=== PATIENT | male | born 1980 | race Two or more races ===

== ENCOUNTER 2020-12-23 14:32 | Day surgery (SDC) | payer OTHER ==
[~2020-12-23] VITALS: Ht 177.8 cm; Wt 131.2 kg
[2020-12-23 15:25] VITALS: BP 138/84
[2020-12-23] MEDS ORDERED: PROMETHAZINE 25 MG/ML, 1ML IVPush PRN (15:30)
[2020-12-23] MEDS ORDERED: LABETALOL 5MG/ML, 20ML IV PRN (15:30)
[2020-12-23] MEDS ORDERED: hydrALAzine 20 MG/ML, 1ML IV PRN (15:30)
[2020-12-23] MEDS ORDERED: HYDROmorphone 1 MG/ML, 1ML INJ IVPush PRN (15:30)
[2020-12-23] MEDS ORDERED: OXYcodone 5 MG/5 ML ORAL.SOL UDC PO PRN (15:30)
[2020-12-23] MEDS ORDERED: LACTATED RINGERS 1,000 ML IV SCH (15:30)
[2020-12-23] MEDS ORDERED: FENTANYL PF 100 MCG/2ML IV PRN (15:30)
[2020-12-23] MEDS ORDERED: CHLORHEXIDINE 15 ML UDC PO ONE (15:30)
[2020-12-23] MEDS ORDERED: EPHEDRINE 50 MG/ML, 1ML IVPush PRN (15:30)
[2020-12-23] MEDS ORDERED: ONDANSETRON 2MG/ML, 2ML IVPush PRN (15:30)
[2020-12-23] MEDS ORDERED: LOSA25TA25 PO (15:34)
[2020-12-23] MEDS ORDERED: BUPIVACAINE 0.25% ONE (15:37)
[2020-12-23] MEDS ORDERED: BACITRACIN OINT 500U/GM, 15 GM ONE (15:38)
[2020-12-23] MEDS ORDERED: EPINEPHRINE 1 MG/ML, 1ML ONE (15:38)
[2020-12-23] MEDS ORDERED: BALANCED SALT OPHTH IRRIG SOLN 18ML ONE (15:38)
[2020-12-23] MEDS ORDERED: MIDAZOLAM 1 MG/ML, 2ML ONE (15:39)
[2020-12-23] MEDS ORDERED: FENTANYL PF 100 MCG/2ML ONE ×2 (15:40→17:18)
[2020-12-23 15:58] LABS: ALBUMIN 3.8 g/dL (3.4-5.0); ANION GAP 7 mmol/L (5-15); CHLORIDE 107 mmol/L (98-107)
[2020-12-23 16:01] LABS: ALANINE AMINOTRANSFERASE 36 U/L (12-78); ALKALINE PHOSPHATASE 59 U/L (45-117); BILIRUBIN,TOTAL 1.1 mg/dL (0.2-1.0); CREATININE 0.94 mg/dL (0.7-1.3); TOTAL PROTEIN 7.7 g/dL (6.4-8.2)
[2020-12-23] MEDS ORDERED: BUPIVACAINE/PF 0.25% INFIL ONE (16:06)
[2020-12-23] MEDS ORDERED: HYDROmorphone 1 MG/ML, 1ML INJ ONE (16:37)
[2020-12-23] MEDS ORDERED: PROPOFOL 10 MG/ML, 20ML ONE (16:40)
[2020-12-23] MEDS ORDERED: DEXAMETHASONE 4 MG/ML, 1ML ONE (16:40)
[2020-12-23] MEDS ORDERED: ONDANSETRON 2MG/ML, 2ML ONE (16:40)
[2020-12-23] MEDS ORDERED: SUCCINYLCHOLINE 20 MG/ML, 10ML ONE (16:40)
[2020-12-23] MEDS ORDERED: LIDOCAINE-MPF 2% ,5ML ONE (16:40)
[2020-12-23] MEDS ORDERED: OXYcodone 5 MG/5 ML ORAL.SOL UDC ONE (17:18)
[2020-12-23] MEDS ORDERED: ACETAMINOPHEN 650 MG/20.3 ML UDC ONE (17:18)
== END 2020-12-23 18:40 | disposition home or self-care (01) ==
LOC: OR 14:32
PROVIDERS: ATTEND Plastic Surgery
DX: S02.31XA Fracture of orbital floor, right side, initial encounter for closed fracture (principal); I10 Essential (primary) hypertension; Z20.822 Contact with and (suspected) exposure to COVID-19; Z79.899 Other long term (current) drug therapy; X58.XXXA Exposure to other specified factors, initial encounter; Y93.89 Activity, other specified; Y92.89 Other specified places as the place of occurrence of the external cause; Y99.8 Other external cause status
CPT/HCPCS: 21390; 36415; 80053; 87635; J0171; J0330; J1100; J1170; J2250; J2405; J2704; J3010; J7120; C1781